=== PATIENT | female | born 1960 | race Caucasian/White ===

== ENCOUNTER 2021-03-30 06:09 | Day surgery (SDC) | payer MEDICARE ==
[~2021-03-30] VITALS: Ht 170.2 cm; Wt 77.3 kg
--- NOTE | ~2021-03-30 | OR ---
[facility] [address] [place], [place] [address] Draft DATE OF OPERATION: 03/30/2021 SURGEON: Meri Gavin DO PROCEDURE: Hysteroscopy D and C with endocervical biopsies. PREOPERATIVE DIAGNOSES: Endometrial thickening, endocervical canal thickening, cervical mass, pelvic pain, postmenopausal on hormone replacement therapy, history of PTSD. POSTOPERATIVE DIAGNOSES: Endometrial thickening, endocervical canal thickening, cervical mass, pelvic pain, postmenopausal on hormone replacement therapy, history of PTSD. ANESTHESIA: General. EBL: 15 mL. COMPLICATIONS: None. FINDINGS: Atrophic appearing endometrial lining. Both tubal ostia are visualized bilaterally. Normal-appearing endocervical canal without polyps or cervical mass visualized on hysteroscopy. Grade 2 cystocele and rectocele present without external abnormalities of the cervix visualized. Significant apical descensus present to the level of the hymenal ring. INDICATIONS: The patient is a 60-year-old female who presented to me initially for evaluation of pelvic pain and urinary and fecal incontinence. Ultrasound was ordered due to pelvic pain as well as significant tenderness to palpation on exam and she was referred to Urogynecology at [facility]. Ultrasound was significant for thickened endometrial lining of 8 mm in postmenopausal patient as well as endocervical thickening with a cervical mass present. Risks, benefits, and alternatives to hysteroscopy D and C with endocervical biopsy were discussed with the patient. Due to her history of PTSD, she strongly desired procedure be performed in the operating room rather than in the office setting. PATIENT NAME: ARABELLA LUJAN RECORD #: [id number] OPERATIVE REPORT DATE OF : 56 REPORT #: [id number] PHYSICIAN: MERI GAVIN DO PCP: LESLIE URIAS MD REPORT IS CONFIDENTIAL AND NOT TO BE RELEASED WITHOUT AUTHORIZATION [facility] [address] [place], [place] [address] Draft We discussed risks of bleeding, perforation, damage to surrounding structures, infection, and postoperative pain management challenges prior to procedure. Discussed standard of care for NSAID therapy for postoperative pain management and the patient elected to proceed. DESCRIPTION OF PROCEDURE: The patient was taken to the operating room where she was placed under anesthesia and positioned in dorsal lithotomy. She was prepped and draped in normal sterile fashion. Anterior lip of the cervix was grasped with an Allis clamp after weighted speculum was placed in the vagina and cervix was easily sequentially dilated with Hegar dilators to 6 mm to accommodate the scope. Hysteroscope was then introduced using the system for fluid management and sterile saline as a distending medium. The endometrium was surveyed with findings as noted above. Both tubal ostia were visualized. MyoSure Lite was brought in and endometrial curettings were performed without difficulty. Hysteroscope was then removed from the endometrium. Endocervical curettings were performed also with MyoSure Lite but submitted as a separate sample. All instrumentation was removed. Excellent hemostasis was noted. Fluid deficit was noted to be 750 mL and sponge and instrument counts were correct. The patient was taken to recovery in stable and satisfactory condition. Meri Gavin DO EMZ/MODL /[id number] Copies: ~ PATIENT NAME: ARABELLA LUJAN OPERATIVE REPORT DATE OF : 56 REPORT #: [id number] PHYSICIAN: MERI GAVIN DO PCP: LESLIE URIAS MD REPORT IS CONFIDENTIAL AND NOT TO BE RELEASED WITHOUT AUTHORIZATION
[~2021-03-30 06:09] MED LIST: DESVENLAFAXINE100 M3 PO; ESTRACE1 MG PO; KLONOPIN0.5 MG PO; PROGESTERONE100 MG PO; SUBOXONE 8 MG-1 EAC1 SL; TOPAMAX25 MG PO; TRAZODONE HCL100 MG PO
--- NOTE | 2021-03-31 15:37 | PATH ---
[facility] [address] [place], [place] [address] Signed SPECIMEN(S): A ENDOMETRIAL CURETTINGS SPECIMEN(S): B ENDOCERVICAL CURETTINGS SPECIMEN SOURCE: A. ENDOMETRIAL CURETTINGS B. ENDOCERVICAL CURETTINGS CLINICAL HISTORY: Thickened endometrium and cervical mass. Hysteroscopy DC with cervical biopsy. FINAL PATHOLOGIC DIAGNOSIS: A. Endometrium, curettage: - Weakly proliferative endometrium with foci of stromal breakdown and focus bordering on disordered proliferation. - Myometrium with no histopathologic abnormality. - Negative for hyperplasia or malignancy. B. Endocervix, curettage: - Fragments of endocervical mucosa with features of benign endocervical polyp(s). - Tunnel clusters. - Weakly proliferative endometrium; negative for hyperplasia. NAL:cml:C2NR MICROSCOPIC EXAMINATION: Histologic sections of all submitted blocks are examined by light microscopy. These findings, together with the gross examination, support the pathologic diagnosis. GROSS DESCRIPTION: Two specimens are received in two containers, labeled "LL." A. The specimen, labeled "LL, A," and designated on the requisition "EMC," is received in formalin and consists of multiple fragments of pink-ruby soft tissue (3.0 x 2.0 x 0.4 cm in aggregate). The specimen is submitted entirely in cassette (A1). B. The specimen, labeled "LL, B," and designated on the requisition "ECC," is received in formalin and consists of multiple fragments of pink-ruby soft tissue and mucoid material (2.5 x 1.4 x 0.2 cm in aggregate). The specimen is submitted entirely in cassette (B1). AC (under the direct supervision of a pathologist) The Gross Description was prepared using a voice recognition system. The report was reviewed for accuracy; however, sound-alike word errors, addition and/or PATIENT NAME: ARABELLA LUJAN PATHOLOGY DATE OF : 56 REPORT #: [id number] PHYSICIAN: SELENA LIVE PCP: LESLIE URIAS MD REPORT IS CONFIDENTIAL AND NOT TO BE RELEASED WITHOUT AUTHORIZATION [facility] [address] [place], [place] [address] Signed deletions may occur. If there is any question about this report, please contact Client Services. PERFORMING LABORATORY: The technical component was performed by [facility] [address] (Round Corner Cutter Operator: Jana De Anda MD; CLIA# [id number]). [facility] [address] [address] (CLIA# [id number]). Diagnostician: Samantha May MD Pathologist Electronically Signed 03/31/2021 Copies: ~ PATIENT NAME: ARABELLA LUJAN PATHOLOGY DATE OF : 56 REPORT #: [id number] PHYSICIAN: SELENA LIVE PCP: LESLIE URIAS MD REPORT IS CONFIDENTIAL AND NOT TO BE RELEASED WITHOUT AUTHORIZATION
== END 2021-03-30 09:20 | disposition home or self-care (01) ==
LOC: OPS 06:09 → DS 06:10 → OPS 06:45 → DS 06:45 → OPS 09:20
PROVIDERS: ATTEND Obstetrics & Gynecology
PROC: 0UDB8ZZ Extraction of Endometrium, Via Natural or Artificial Opening Endoscopic (ICD-10-PCS; 2021-03-30)
PROC: 0UBC8ZX Excision of Cervix, Via Natural or Artificial Opening Endoscopic, Diagnostic (ICD-10-PCS; principal; 2021-03-30 06:45)
DX: R93.89 Abnormal findings on diagnostic imaging of other specified body structures (principal); N88.8 Other specified noninflammatory disorders of cervix uteri; R10.2 Pelvic and perineal pain; N95.9 Unspecified menopausal and perimenopausal disorder; F43.10 Post-traumatic stress disorder, unspecified; J45.20 Mild intermittent asthma, uncomplicated; G43.909 Migraine, unspecified, not intractable, without status migrainosus; M79.7 Fibromyalgia; M17.11 Unilateral primary osteoarthritis, right knee; Z79.890 Hormone replacement therapy; Z98.1 Arthrodesis status; Z96.642 Presence of left artificial hip joint; Z88.8 Allergy status to other drugs, medicaments and biological substances; Z91.038 Other insect allergy status; Z88.1 Allergy status to other antibiotic agents; Z88.5 Allergy status to narcotic agent
CPT/HCPCS: 36415; 86850; 86900; 86901; J0131; J1644; J1885; J2001; J2704; J7121

== ENCOUNTER 2021-06-27 13:27 | Emergency (ER) | payer MEDICARE ==
[~2021-06-27] VITALS: Ht 170.2 cm; Wt 77.1 kg
--- OUTSIDE RECORDS SUMMARY | 2021-06-27 13:30 | XMS ---
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 [facility] TOTAL 3 NOTE: Visits indicate total known visits. ED/UCC VISIT TRACKING (12 MO.) 06/27/2021 13:28 [facility] [place] [place] TYPE: Emergency COMPLAINT: - L FLANK PAIN [facility]22[facility]2020 14[facility] Emergency DIAGNOSES: - Dizziness - Dizziness and giddiness - Weakness - Altered Mental Status 07/17/2020 00:43 [facility] Sahra [place] TYPE: Emergency DIAGNOSES: - Sprain of other ligament of left ankle, initial encounter - Ankle Injury - Ankle Pain INPATIENT VISIT TRACKING (12 MO.) No inpatient visits to display in this time frame [email or web address]
== END 2021-06-27 18:52 | disposition home or self-care (01) ==
LOC: ED 13:27
DX: K59.00 Constipation, unspecified (principal); Z88.8 Allergy status to other drugs, medicaments and biological substances; Z88.1 Allergy status to other antibiotic agents; Z79.899 Other long term (current) drug therapy
CPT/HCPCS: 74176; 81001; 96372; 99284-25; J1885

== ENCOUNTER 2022-03-30 12:23 | Emergency (ER) | payer MEDICARE, OTHER ==
[~2022-03-30] VITALS: Ht 170.2 cm; Wt 88.9 kg
--- OUTSIDE RECORDS SUMMARY | 2022-03-30 12:26 | XMS ---
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 - Has Care Guidelines CARE PROVIDERS LESLIE REBOLLEDO [facility] 06/28/2021-Current PHONE: Unknown SE [facility]ERT[place] OFFICE OF Case Management Current AGING \T\ CUSTODIAL CARE PHONE: [phone] Arely has no Care Guidelines for this patient. Care History Medical/Surgical 06/29/2021 [facility] Follow up with PCP Dr. Rebolledo on 06/29/2021 06/28/2021 [facility] - Patient is currently established with [facility]. If patient is seen in the ED during business hours. Please contact CHWs at [facility]. Care Recommendation: If this patient has had 5 or more Emergency Department visits in the last 12 months.\T\nbsp;Patient will require education on the scope and purpose of the ED as an acute care provider not a Primary Care Provider and should not be utilized for chronic conditions.\T\nbsp; These are guidelines and the provider should exercise clinical judgment when providing care. [place] V[facility] (12 MO.) [facility] TOTAL 3 NOTE: Visits indicate total known visits. ED/UCC VISIT TRACKING (12 MO.) 03/30/2022 12:24 [facility] [place] TYPE: Emergency COMPLAINT: - POSS STROKE OR RETINAL TEAR, NAUSEA, DIZZY 08/02/2021 09:31 [facility] [place] TYPE: Emergency DIAGNOSES: - Shortness of Breath - Solitary pulmonary nodule - Dizziness and giddiness - Decreased white blood cell count, unspecified - Shortness of breath 06/27/2021 13:28 [facility] TYPE: Emergency COMPLAINT: - L FLANK PAIN DIAGNOSES: - Low back pain, unspecified - Allergy status to other antibiotic agents - Allergy status to other drugs, medicaments and biological substances - Constipation, unspecified - Other keno terminal operator (current) drug therapy INPATIENT VISIT TRACKING (12 MO.) No inpatient visits to display in this time frame [email or web address]
[2022-03-30] MEDS ORDERED: MELOXICAM15 MG PO (13:57)
[2022-03-31] MEDS ORDERED: VITAMIN D325 MCG PO (12:55)
== END 2022-03-30 15:14 | disposition home or self-care (01) ==
LOC: ED 12:23
DX: H35.62 Retinal hemorrhage, left eye (principal); I50.9 Heart failure, unspecified; Z88.8 Allergy status to other drugs, medicaments and biological substances; Z88.1 Allergy status to other antibiotic agents; Z91.030 Bee allergy status; Z79.899 Other long term (current) drug therapy
CPT/HCPCS: 99283

== ENCOUNTER 2022-03-31 12:36 | Emergency (ER) | payer MEDICARE, OTHER ==
[~2022-03-31] VITALS: Ht 170.2 cm; Wt 88.5 kg
[~2022-03-31 12:36] MED LIST changes: +MELOXICAM15 MG PO
--- OUTSIDE RECORDS SUMMARY | 2022-03-31 12:38 | XMS ---
PreManage Notification: ARABELLA LUJAN Security Inside Tester Events No recent Security Events currently on file CRITERIA MET - PDMP - [facility] - 2 Visits in 30 Days - [facility] - Has Care Guidelines CARE PROVIDERS LESLIE REBOLLEDO [facility] 06/28/2021-Current PHONE: Unknown SE [place]ERT[place] OFFICE OF Case Management Current AGING \T\ ASH PIT WORKER CARE PHONE: [phone] Arely has no Care Guidelines for this patient. Care History Medical/Surgical 06/29/2021 [facility] [place] [facility] Follow up with PCP Dr. Rebolledo on 06/29/2021 06/28/2021 [facility] [place] [facility] - Patient is currently established with [facility]. If patient is seen in the ED during business hours. Please contact CHWs at [facility]. Care Recommendation: If this patient has had 5 or more Emergency Department visits in the last 12 months.\T\nbsp;Patient will require education on the scope and purpose of the ED as an acute care provider not a Primary Care Provider and should not be utilized for chronic conditions.\T\nbsp; These are guidelines and the provider should exercise clinical judgment when providing care. [place] [facility] ([facility] MO.) [facility] TOTAL 5 NOTE: Visits indicate total known visits. ED/UCC VISIT TRACKING (12 MO.) 03/31/2022 12:37 [facility] [place] TYPE: Emergency COMPLAINT: - LEFT EYE ISSUE 03/30/2022 18:22 [facility] [place] [facility]: Emergency DIAGNOSES: - Unspecified visual disturbance - Loss of Vision - possible retinal hemorrhage 03/30/2022 12:24 [facility] TYPE: Emergency COMPLAINT: - POSS STROKE OR RETINAL TEAR, NAUSEA, DIZZY 08/02/2021 09:31 [facility] Emergency DIAGNOSES: - Decreased white blood cell count, unspecified - Shortness of breath - Shortness of Breath - Solitary pulmonary nodule - Dizziness and giddiness 06/27/2021 13:28 [facility] [place] TYPE: Emergency COMPLAINT: - L FLANK PAIN DIAGNOSES: - Constipation, unspecified - Other vermin exterminator (current) drug therapy - Low back pain, unspecified - Allergy status to other antibiotic agents - Allergy status to other drugs, medicaments and biological substances INPATIENT VISIT TRACKING (12 MO.) No inpatient visits to display in this time frame [email or web address]
[2022-03-31] MEDS ORDERED: VITAMIN D325 MCG PO (12:55)
== END 2022-03-31 13:55 | disposition home or self-care (01) ==
LOC: ED 12:36
DX: H53.10 Unspecified subjective visual disturbances (principal); I50.9 Heart failure, unspecified; G43.909 Migraine, unspecified, not intractable, without status migrainosus; Z88.8 Allergy status to other drugs, medicaments and biological substances; Z91.030 Bee allergy status; Z79.899 Other long term (current) drug therapy
CPT/HCPCS: 99283

== ENCOUNTER 2022-04-25 12:18 | Emergency (ER) | payer MEDICARE, OTHER ==
[~2022-04-25] VITALS: Ht 170.2 cm; Wt 89.9 kg
[~2022-04-25 12:18] MED LIST changes: +VITAMIN D325 MCG PO
--- OUTSIDE RECORDS SUMMARY | 2022-04-25 12:20 | XMS ---
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 - Patient with suicidal and/or homicidal ideations eloped. - Patient eloped with IV in place. Details: LWBS CRITERIA MET - [facility] - 3 Facilities in 90 Days - [facility] - 2 Visits in 30 Days - [facility] - Has Care Guidelines - 6 ED Visits in 6 Months - [facility] CARE PROVIDERS LESLIE REBOLLEDO [facility] 06/28/2021-Current PHONE: [phone] SE HUERTA OFFICE OF Case Management Current AGING \T\ STEAM CONDITIONER OPERATOR CARE PHONE: [phone] Arely has no Care Guidelines for this patient. Care History Medical/Surgical 06/29/2021 [facility] Follow up with PCP Dr. Rebolledo on 06/29/2021 06/28/2021 [facility] - Patient is currently established with [facility]. If patient is seen in the ED during business hours. Please contact CHWs at [facility]. Care Recommendation: If this patient has had 5 or more Emergency Department visits in the last 12 months.\T\nbsp;Patient will require education on the scope and purpose of the ED as an acute care provider not a Primary Care Provider and should not be utilized for chronic conditions.\T\nbsp; These are guidelines and the provider should exercise clinical judgment when providing care. E.D. VISIT COUNT (12 MO.) 1 [facility] [address] [facility] 5 [facility] TOTAL 8 NOTE: Visits indicate total known visits. ED/UCC VISIT TRACKING (12 MO.) 04/25/2022 12:18 [facility] [place] TYPE: Emergency COMPLAINT: - SHORTNESS OF BREATH 04/12/2022 12:14 [facility] [place] TYPE: Emergency COMPLAINT: - LOWER BACK PAIN, BARELY ABLE TO WALK, INCONTINENCE 03/31/2022 19:10 [facility] TYPE: Emergency DIAGNOSES: [address]. VISION CHANGES 126[address]. Unspecified visual disturbance 03/31/2022 12:37 [facility] [place] TYPE: Emergency COMPLAINT: - LEFT EYE ISSUE DIAGNOSES: - Unspecified subjective visual disturbances - Unspecified visual disturbance - Allergy status to other drugs, medicaments and biological substances - Other filler leaf cutter long (current) drug therapy - Heart failure, unspecified - Migraine, unspecified, not intractable, without status migrainosus - Bee allergy status 03/30/2022 18:22 [facility] [place] TYPE: Emergency DIAGNOSES: - Loss of Vision - possible retinal hemorrhage - Unspecified visual disturbance 03/30/2022 12:24 [facility] [place] TYPE: Emergency COMPLAINT: - POSS STROKE OR RETINAL TEAR, NAUSEA, DIZZY DIAGNOSES: - Other halfway (current) drug therapy - Allergy status to other antibiotic agents - Retinal hemorrhage, left eye - Heart failure, unspecified - Allergy status to other drugs, medicaments and biological substances - Bee allergy status - Ocular pain, left eye 08/02/2021 09:[facility] [place] [facility]: Emergency DIAGNOSES: - Shortness of Breath - Solitary pulmonary nodule - Dizziness and giddiness - Decreased white blood cell count, unspecified - Shortness of breath 06/27/2021 13:28 [facility] [place] TYPE: Emergency COMPLAINT: - L FLANK PAIN DIAGNOSES: - Low back pain, unspecified - Allergy status to other antibiotic agents - Allergy status to other drugs, medicaments and biological substances - Constipation, unspecified - Other halfway (current) drug therapy INPATIENT VISIT TRACKING (12 MO.) No inpatient visits to display in this time frame [id number]
[2022-04-25] MEDS ORDERED: K-TAB ER20 MEQ PO (15:59)
[2022-04-25] MEDS ORDERED: LASIX20 MG PO (15:59)
--- NOTE | 2022-04-25 16:45 | EKG ---
[facility] [address] [facility] [place] [address] Signed Normal sinus rhythm Inferior infarct , age undetermined Abnormal ECG When compared with ECG of 21-MAR-2021 16:16, No significant change was found Confirmed by OBI HOWELL MD ([id number]) on 04/25/2022 4:45:37 PM Electronically Signed By: OBI HOWELL MD 04/25/22 1645 PATIENT NAME: ARABELLA LUJAN Electrocardiogram DATE OF : 56 PHYSICIAN: OBI HOWELL MD REPORT #: [id number] REPORT IS CONFIDENTIAL AND NOT TO BE RELEASED WITHOUT AUTHORIZATION
== END 2022-04-25 16:31 | disposition home or self-care (01) ==
LOC: ED 12:18
DX: R60.0 Localized edema (principal); I50.9 Heart failure, unspecified; M19.90 Unspecified osteoarthritis, unspecified site; G43.909 Migraine, unspecified, not intractable, without status migrainosus; Z88.8 Allergy status to other drugs, medicaments and biological substances; Z88.1 Allergy status to other antibiotic agents; Z91.030 Bee allergy status; Z79.899 Other long term (current) drug therapy
CPT/HCPCS: 36415; 71045; 80053; 81003; 83735; 83880; 84484; 85025; 87502; 93005; 93010; 99285-25; U0003

== ENCOUNTER 2022-07-04 12:10 | Emergency (ER) | payer MEDICARE, OTHER ==
[~2022-07-04] VITALS: Ht 170.2 cm; Wt 89.8 kg
[~2022-07-04 12:10] MED LIST changes: +K-TAB ER20 MEQ PO; +LASIX20 MG PO
--- OUTSIDE RECORDS SUMMARY | 2022-07-04 12:12 | XMS ---
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 - Patient with suicidal and/or homicidal ideations eloped. - Patient eloped with IV in place. Details: LWBS CRITERIA MET - 6 ED [facility] in [facility] Months [facility] - Has Care Guidelines CARE PROVIDERS LESLIE REBOLLEDO [facility] 06/28/2021-Current PHONE: [phone] SE HUERTA OFFICE OF Case Management Current AGING \T\ SNF CARE PHONE: [phone] Arely has no Care Guidelines for this patient. Care History Medical/Surgical 06/29/2021 [facility] Follow up with PCP Dr. Rebolledo on 06/29/2021 06/28/2021 [facility] - Patient is currently established with [facility]. If patient is seen in the ED during business hours. Please contact CHWs at [facility]. Care Recommendation: If this patient has [...] care. E.D. VISIT COUNT (12 MO.) 1 [facility] 2 [facility] 5 [facility] TOTAL 8 NOTE: Visits indicate total known visits. ED/UCC VISIT TRACKING (12 MO.) 07/04/2022 12:11 [facility] [place] TYPE: Emergency COMPLAINT: - DIZZINESS 04/25/2022 12:18 [facility] [place] TYPE: Emergency COMPLAINT: - SHORTNESS OF BREATH DIAGNOSES: - Allergy status to other antibiotic agents - Allergy status to other drugs, medicaments and biological substances - Bee allergy status - Contact with and (suspected) exposure to COVID-19 - Heart failure, unspecified - Localized edema - Migraine, unspecified, not intractable, without status migrainosus - Other long-term (current) drug therapy - Shortness of breath - Unspecified osteoarthritis, unspecified site 04/12/2022 12:14 [facility] [place] TYPE: Emergency COMPLAINT: - LOWER BACK PAIN, BARELY ABLE TO WALK, INCONTINENCE 03/31/2022 19:10 [facility] TYPE: Emergency DIAGNOSES: 31596. VISION CHANGES [address]. Unspecified visual disturbance 03/31/2022 12:37 [facility] TYPE: Emergency COMPLAINT: - LEFT EYE ISSUE DIAGNOSES: - Allergy status to other drugs, medicaments and biological substances - Bee allergy status - Heart failure, unspecified - Migraine, unspecified, not intractable, without status migrainosus - Other long-term (current) drug therapy - Unspecified subjective visual disturbances - Unspecified visual disturbance [facility]22 [facility] DIAGNOSES: - Unspecified visual disturbance - Loss of Vision - possible retinal hemorrhage 03/30/2022 12:24 [facility] TYPE: Emergency COMPLAINT: - POSS STROKE OR RETINAL TEAR, NAUSEA, DIZZY DIAGNOSES: - Allergy status to other antibiotic agents - Allergy status to other drugs, medicaments and biological substances - Bee allergy status - Heart failure, unspecified - Ocular pain, left eye - Other long-term (current) drug therapy - Retinal hemorrhage, left eye [facility]02[facility]21 [facility] DIAGNOSES: - Decreased white blood cell count, unspecified - Dizziness and giddiness - Shortness of breath - Solitary pulmonary nodule - Shortness of Breath INPATIENT VISIT TRACKING (12 MO.) No inpatient visits to display in this time frame [email or web address]
[2022-07-04 14:43] VITALS: BP 147/72
--- NOTE | 2022-07-04 19:10 | EKG ---
[facility] [address] [place], [place] [address] Signed Normal sinus rhythm Normal ECG When compared with ECG of 25-APR-2022 12:32, No significant change was found Confirmed by LISA FOFANA MD ([id number]) on 07/04/2022 7:10:01 PM Electronically Signed By: LISA FOFANA MD 07/04/221909 PATIENT NAME: ARABELLA LUJAN Electrocardiogram DATE OF : 56 PHYSICIAN: LISA FOFANA MD REPORT #: [id number] REPORT IS CONFIDENTIAL AND NOT TO BE RELEASED WITHOUT AUTHORIZATION
== END 2022-07-04 14:40 | disposition home or self-care (01) ==
LOC: ED 12:10
DX: F41.1 Generalized anxiety disorder (principal); I50.9 Heart failure, unspecified; M19.90 Unspecified osteoarthritis, unspecified site; G43.909 Migraine, unspecified, not intractable, without status migrainosus; Z88.8 Allergy status to other drugs, medicaments and biological substances; Z88.1 Allergy status to other antibiotic agents; Z91.030 Bee allergy status; Z79.899 Other long term (current) drug therapy
CPT/HCPCS: 36415; 80053; 84484; 85025; 85379; 93005; 93010; 93971; 99284-25

== ENCOUNTER 2023-02-27 06:47 | Day surgery (SDC) | payer MEDICARE, OTHER ==
[2023-02-11 15:18] VITALS: BP 133/75
[~2023-02-27] VITALS: Ht 170.2 cm; Wt 88.6 kg
[~2023-02-27 06:47] MED LIST changes: +BUPRENORP-NALO1 EAC1 SL; +LACTATED RINGER'S 1,000 ML IV SCH; +METFORMIN HCL500 MG PO; +NARCAN4 MG NAS; +VENTOLIN HFA18 GM INH; +ZIPRASIDONE HCL20 MG PO
[2023-02-27 07:00] VITALS: BP 137/72
[2023-02-27] MEDS ORDERED: IBLOOD GLUCOSE TEST STRIP 1 EA TEST VI PRN ×2 (07:00→10:45)
[2023-02-27] MEDS ORDERED: FAMOTIDINE 20 MG/ 2 ML VIAL IV SCH (07:00)
[2023-02-27] MEDS ORDERED: LIDOCAINE HCL 1% 5 ML SDV INJ ONE (07:00)
[2023-02-27] MEDS ORDERED: propofoL 200 MG/20 ML VIAL ONE ×3 (09:16→09:53)
[2023-02-27] MEDS ORDERED: KETAMINE in NS 50 MG/5 ML SYR ONE (09:16)
[2023-02-27] MEDS ORDERED: MIDAZOLAM HCL 2 MG/2 ML VIAL ONE ×2 (09:16→10:12)
[2023-02-27] MEDS ORDERED: LIDOCAINE HCL 2% 5 ML SDV ONE (09:16)
[2023-02-27] MEDS ORDERED: dexmedeTOMIDine HCl 200 MCG/2 ML VIAL ONE (09:31)
[2023-02-27] MEDS ORDERED: ACETAMINOPHEN 1,000 MG/100 ML VIAL ONE (09:37)
[2023-02-27] MEDS ORDERED: ePHEDrine sulfate 50 MG/ML AMP ONE (09:39)
[2023-02-27] MEDS ORDERED: SODIUM CHLORIDE 0.9% 20 ML IV ONE (09:40)
[2023-02-27] MEDS ORDERED: KETOROLAC TROMETHAMINE 30 MG/ML VIAL ONE (10:03)
[2023-02-27] MEDS ORDERED: ondansetron HCL 4 MG/2 ML VIAL ONE (10:03)
[2023-02-27] MEDS ORDERED: ondansetron HCL 4 MG/2 ML VIAL IV PRN ×2 (10:15→10:45)
[2023-02-27] MEDS ORDERED: LACTATED RINGER'S 1,000 ML IV SCH (10:15)
[2023-02-27] MEDS ORDERED: IBUPROFEN 800 MG TAB PO PRN (10:15)
[2023-02-27] MEDS ORDERED: FAMOTIDINE 20 MG TAB PO PRN (10:15)
[2023-02-27] MEDS ORDERED: MAGNESIUM HYDROXIDE/AL HYDROX 30 ML CUP PO PRN (10:15)
[2023-02-27] MEDS ORDERED: ondansetron HCL 4 MG TAB PO PRN (10:15)
[2023-02-27] MEDS ORDERED: NALOXONE HCL 0.4 MG SYR IV PRN (10:45)
[2023-02-27] MEDS ORDERED: AZITHROMYCIN250 MG PO (11:29)
[2023-02-27 12:16] LABS: BILIRUBIN, URINE NEGATIVE (negative); BLOOD/HGB, URINE LARGE (Negative); KETONE, URINE NEGATIVE (Negative); LEUK ESTERASE, URINE NEGATIVE (negative); NITRITE, URINE NEGATIVE (negative)
[2023-02-27 12:30] LABS: RED BLOOD CELLS, URINE 41-50 /hpf (0-5)
[2023-02-27 12:32] LABS: EPITHELIAL CELLS, URINE SQUAMOUS 1+ /lpf (0-1+); REFLEX CULTURE, URINE No (No)
[2023-02-27 15:00] VITALS: BP 117/68
--- NOTE | 2023-03-01 11:26 | PATH ---
[facility] [address] [place], [place] [address] Signed SPECIMEN(S): A EXOCERVIX SPECIMEN(S): B ENDOCERVIX SPECIMEN(S): C ENDOCERVICAL CURETTINGS SPECIMEN(S): D ENDOMETRIAL BIOPSY SPECIMEN SOURCE: A. EXOCERVIX B. ENDOCERVIX C. ENDOCERVICAL CURETTINGS D. ENDOMETRIAL BIOPSY CLINICAL HISTORY: HPV. FINAL PATHOLOGIC DIAGNOSIS: A. Ectocervix: - Low-grade squamous intraepithelial lesion (mild squamous dysplasia, GERALD 1) at an inked margin. - Squamous metaplasia. B. Endocervix: - Benign cervical stroma, negative for epithelium or pathologic inflammation. C. Endocervical curettings: - Benign endocervical epithelium, negative for definite dysplasia. - Mucoinflammatory debris. D. Endometrial biopsy: - Benign endocervical and rare atrophic endometrial glandular epithelium, negative for hyperplasia or atypia. - Mucoinflammatory debris. - See Comment. COMMENT: The recent cervical cytology ([id number], reactive, high-risk HPV positive) is noted. The endometrial sampling is scant and may not be access service representative of the endometrium. Clinical correlation is requested and if concern persists additional sampling may be considered. JVR:smn MICROSCOPIC EXAMINATION: Histologic sections of all submitted blocks are examined by light microscopy. These findings, together with the gross examination, support the pathologic PATIENT NAME: ARABELLA LUJAN PATHOLOGY DATE OF : 56 REPORT #: [id number] PHYSICIAN: SELENA LIVE PCP: LESLIE URIAS MD REPORT IS CONFIDENTIAL AND NOT TO BE RELEASED WITHOUT AUTHORIZATION [facility] [address] [place], [place] [address] Signed diagnosis. A p16 immunostain is performed with appropriate controls on block A1 and is negative for full thickness epithelial staining and shows patchy expression in the area of concern, supporting the diagnosis. JVR:smn GROSS DESCRIPTION: A. The specimen, labeled and designated "Marlene, exocervix," is received in formalin and consists of cervical tissue that measure 1.1 x 1.0 x 0.5 cm. The ectocervix is pink-ruby, smooth. Resection margin is inked and specimen is sectioned. Entirely submitted in (A1). B. The specimen, labeled and designated "Marlene, endocervix," is received in formalin and consists of irregular shaped pink-ruby tissue fragment that measure 0.8 x 0.7 x 0.6 cm. Specimen is inked and sectioned. Entirely submitted in (B1). C. The specimen, labeled and designated "Marlene, endocervical curettings," is received in formalin and consists of 1.7 x 0.6 x 0.2 cm aggregate of adhikari mucoid material. The specimen is filtered into a mesh bag and entirely in (C1). D. The specimen, labeled and designated "Marlene, endometrial biopsy," is received in formalin and consists of irregular shaped membranous and hemorrhagic tissue fragments that aggregate measure 1.7 x 0.7 x 0.1 cm. Entirely submitted in (D1). JS (under the direct supervision of a pathologist) The Gross Description was prepared using a voice recognition system. The report was reviewed for accuracy; however, sound-alike word errors, addition and/or deletions may occur. If there is any question about this report, please contact Client Services. ADDITIONAL NOTES: Immunohistochemical and/or in situ hybridization studies were performed on this case with the appropriate positive controls that react as expected. This test was developed and its performance characteristics determined by [facility]. It has not been cleared or approved by the U.S. Food and Drug Administration. The FDA has determined that such clearance or approval is not necessary. This test is used for clinical purposes. It should not be regarded as investigational or for research. [facility] is certified under the Clinical Laboratory Improvement Amendments of 1988 (CLIA) as qualified to perform high complexity clinical PATIENT NAME: ARABELLA LUJAN PATHOLOGY DATE OF : 56 REPORT #: [id number] PHYSICIAN: SELENA LIVE PCP: LESLIE URIAS MD REPORT IS CONFIDENTIAL AND NOT TO BE RELEASED WITHOUT AUTHORIZATION [facility] [address] [place] [id number] Signed laboratory testing. This assay has not been validated for specimens that have been decalcified. PERFORMING LABORATORY: Technical component was performed by [facility], [address] [place] [id number] (CLIA# [id number]). Professional interpretation was performed by [facility], [address] [place] [id number] (CLIA#: [id number]). Diagnostician: Freddy Coles MD Pathologist Electronically Signed 03/01/2023 Copies: ~ PATIENT NAME: ARABELLA LUJAN PATHOLOGY DATE OF : 56 REPORT #: [id number] PHYSICIAN: SELENA LIVE PCP: LESLIE URIAS MD REPORT IS CONFIDENTIAL AND NOT TO BE RELEASED WITHOUT AUTHORIZATION
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
== END 2023-02-27 12:04 | disposition home or self-care (01) ==
LOC: OPS 06:47 → DS 06:47 → OPS 07:30 → DS 09:15 → OPS 09:15
PROVIDERS: ATTEND Obstetrics & Gynecology
PROC: 0UBC7ZZ Excision of Cervix, Via Natural or Artificial Opening (ICD-10-PCS; principal; 2023-02-27 10:00)
DX: R87.612 Low grade squamous intraepithelial lesion on cytologic smear of cervix (LGSIL) (principal); R87.810 Cervical high risk human papillomavirus (HPV) DNA test positive; F32.A Depression, unspecified; J45.20 Mild intermittent asthma, uncomplicated; K21.9 Gastro-esophageal reflux disease without esophagitis; G43.909 Migraine, unspecified, not intractable, without status migrainosus; E28.2 Polycystic ovarian syndrome; Z79.899 Other long term (current) drug therapy; Z88.8 Allergy status to other drugs, medicaments and biological substances; F43.10 Post-traumatic stress disorder, unspecified
CPT/HCPCS: 00940; 81001; 87088; 88305; 88342; J0131; J1885; J2001; J2250; J2405; J2704; J3490; J7121

== ENCOUNTER 2023-04-06 17:39 | Emergency (ER) | payer MEDICARE, OTHER ==
[~2023-04-06] VITALS: Ht 170.2 cm; Wt 91.1 kg
[~2023-04-06 17:39] MED LIST changes: +AZITHROMYCIN250 MG PO; -LACTATED RINGER'S 1,000 ML IV SCH
[2023-04-06 18:01] LABS: BASOPHILS 0.9 % (0-2); EOSINOPHILS 4.5 % (0-6); HEMATOCRIT 37.8 % (35.0-50.0); HEMOGLOBIN 12.8 g/dL (12.0-18.0); LYMPHOCYTES 41.2 % (24-44); MCH 30.4 (27-36); MCHC 33.8 g/dl (30-36); MCV 89.9 fl (81-99); MONOCYTES 6.7 % (0-12); NEUTROPHILS 46.7 % (39-80); PLATELET COUNT 193 K/uL (140-440); RBC 4.21 M/ul (4.3-5.7); RDW 13.4 (10.5-15.0)
[2023-04-06 18:13] LABS: ALBUMIN 3.6 g/dL (3.4-5.0); ALBUMIN/GLOBULIN RATIO 1.2 (1.1-2.4); ANION GAP 14.2 (7-21); BILIRUBIN, TOTAL 0.3 ng/dL (0.2-1.0); BUN/CREATININE RATIO 20.23 (6.0-28.6); CALCIUM 8.9 mg/dL (8.5-10.1); CREATININE, SERUM 0.84 mg/dL (0.55-1.02); MAGNESIUM 2.1 mg/dL (1.8-2.4); POTASSIUM 4.2 mmol/L (3.5-5.1); PROTEIN, TOTAL 6.6 g/dL (6.4-8.2)
[2023-04-06] MEDS ORDERED: ondansetron HCL 4 MG/2 ML VIAL IV ONE (19:00)
--- NOTE | 2023-04-08 11:58 | EKG ---
[facility] [address] [facility] [place] [address] Signed Normal sinus rhythm Normal ECG When compared with ECG of 04-JUL-2022 12:22, No significant change was found Confirmed by Nola Corona MD ([id number]) on 04/08/2023 11:58:25 AM Electronically Signed By: NOLA CORONA 04/08/23 1158 PATIENT NAME: ARABELLA LUJAN Electrocardiogram DATE OF : 56 PHYSICIAN: NOLA CORONA REPORT #: [id number] REPORT IS CONFIDENTIAL AND NOT TO BE RELEASED WITHOUT AUTHORIZATION
== END 2023-04-06 20:15 | disposition home or self-care (01) ==
LOC: ED 17:39
PROVIDERS: Emergency Medicine
DX: R07.9 Chest pain, unspecified (principal); I50.9 Heart failure, unspecified; Z88.8 Allergy status to other drugs, medicaments and biological substances; Z91.030 Bee allergy status; Z79.899 Other long term (current) drug therapy; Z79.84 Long term (current) use of oral hypoglycemic drugs
CPT/HCPCS: 36415; 71045; 80053; 83735; 84484; 85025; 93005; 93010; J2405

== ENCOUNTER 2024-11-19 14:03 | Emergency (ER) | payer MEDICARE, OTHER ==
[~2024-11-19] VITALS: Ht 170.2 cm; Wt 98.5 kg
[~2024-11-19 14:03] MED LIST changes: +CLONIDINE HCL0.1 MG PO; +METHOCARBAMOL750 MG PO; +METHYLPREDNISOLO4 M1 PO
[2024-11-19 14:36] LABS: BASOPHILS 0.6 % (0.1-1.2); EOSINOPHILS 3.1 % (0.7-5.8); LYMPHOCYTES 34.4 % (19.3-51.7); MCH 30.8 PG (25.6-32.2); MCHC 34.1 g/dL (32.2-35.5); MCV 90.3 fL (79.4-94.8); MONOCYTES 6.4 % (4.7-12.5); NEUTROPHILS 55.1 % (34.0-71.1); RBC 4.55 M/uL (3.93-5.22)
[2024-11-19 15:14] LABS: CORONAVIRUS COVID-19 AG NEGATIVE (NEGATIVE)
[2024-11-19 15:24] LABS: ALT (SGPT) 19 U/L (14-59); AST (SGOT) 11 U/L (15-37); GLOMERULAR FILTRATION RATE,EST 93 mL/min (>60); PROTEIN, TOTAL 6.5 g/dL (6.4-8.2); UREA NITROGEN 17 mg/dL (7-18)
[2024-11-19] MEDS ORDERED: SODIUM CHLORIDE 0.9% 1,000 ML IV PRN (15:45)
[2024-11-19 18:15] VITALS: BP 138/68
--- NOTE | 2024-11-22 10:40 | EKG ---
[facility] [address] [facility] [place] [address] Signed Normal sinus rhythm Low voltage QRS Borderline ECG When compared with ECG of 06-APR-2023 17:41, No significant change was found Confirmed by Chun Noland DO ([id number]) on 11/22/2024 10:40:33 AM Electronically Signed By: CHUN NOLAND DO 11/22/24 1040 PATIENT NAME: ARABELLA LUJAN Electrocardiogram DATE OF : 56 PHYSICIAN: CHUN NOLAND DO REPORT #: [id number] REPORT IS CONFIDENTIAL AND NOT TO BE RELEASED WITHOUT AUTHORIZATION
== END 2024-11-19 18:10 | disposition home or self-care (01) ==
LOC: ED 14:03
PROVIDERS: Emergency Medicine
DX: R55 Syncope and collapse (principal); I50.9 Heart failure, unspecified; J45.909 Unspecified asthma, uncomplicated; Z88.8 Allergy status to other drugs, medicaments and biological substances; Z88.1 Allergy status to other antibiotic agents; Z91.038 Other insect allergy status; Z79.1 Long term (current) use of non-steroidal anti-inflammatories (NSAID); Z79.899 Other long term (current) drug therapy
CPT/HCPCS: 36415; 70450; 70496; 70498; 71045; 80053; 83880; 84484; 85025; 93005; 93010; 99285-25; J7030; Q9967

== ENCOUNTER 2025-01-27 05:47 | Day surgery (SDC) | payer MEDICARE, OTHER ==
[~2025-01-27] VITALS: Ht 167.6 cm; Wt 93.0 kg
[~2025-01-27 05:47] MED LIST changes: +BUPRENORPHINE HC2 MG SL; +ESTRACE42.5 GM VAGINAL; +FAMOTIDINE20 MG PO; +GEMTESA75 MG PO; +LACTATED RINGER'S 1,000 ML IV SCH; +LOSARTAN POTASS25 MG PO
[2025-01-27 06:07] VITALS: BP 134/65
[2025-01-27] MEDS ORDERED: SUMATRIPTAN5 MG NAS (06:17)
[2025-01-27] MEDS ORDERED: FLONASE ALLERG9.9 ML NAS (06:17)
[2025-01-27 06:20] LABS: BASOPHILS 0.7 % (0.1-1.2); EOSINOPHILS 3.3 % (0.7-5.8); LYMPHOCYTES 43.1 % (19.3-51.7); MCH 29.9 PG (25.6-32.2); MCHC 33.7 g/dL (32.2-35.5); MCV 88.9 fL (79.4-94.8); MONOCYTES 7.4 % (4.7-12.5); NEUTROPHILS 45.3 % (34.0-71.1); RBC 4.58 M/uL (3.93-5.22)
[2025-01-27] MEDS ORDERED: LIDOCAINE HCL 1% 5 ML SDV INJ ONE (07:00)
[2025-01-27] MEDS ORDERED: CEFAZOLIN SODIUM 2 GM in SODIUM CHLORIDE 0.9% 100 ML IV SCH (07:00)
[2025-01-27] MEDS ORDERED: IBLOOD GLUCOSE TEST STRIP 1 EA TEST VI PRN ×2 (07:00→08:30)
[2025-01-27] MEDS ORDERED: ACETAMINOPHEN 1,000 MG/100 ML VIAL ONE (07:30)
[2025-01-27] MEDS ORDERED: fentaNYL citrate 100 MCG/2 ML VIAL ONE (07:30)
[2025-01-27] MEDS ORDERED: SUGAMMADEX SODIUM 200 MG/2 ML ML ONE (07:30)
[2025-01-27] MEDS ORDERED: LIDOCAINE HCL 2% 5 ML SDV ONE (07:30)
[2025-01-27] MEDS ORDERED: ROCURONIUM BROMIDE 50 MG/5 ML SYR ONE (07:30)
[2025-01-27] MEDS ORDERED: KETOROLAC TROMETHAMINE 30 MG/ML VIAL ONE (07:33)
[2025-01-27] MEDS ORDERED: DEXAMETHASONE SOD PHOS 4 MG/ML VIAL ONE ×3 (07:33→07:49)
[2025-01-27] MEDS ORDERED: Ropivacaine HCl 0.5% 30 ML VIAL ONE (07:49)
[2025-01-27] MEDS ORDERED: SODIUM CHLORIDE 0.9% 20 ML IV ONE (07:49)
[2025-01-27] MEDS ORDERED: HYDROCODONE/ACETA 7.5/325 TAB PO PRN (08:30)
[2025-01-27] MEDS ORDERED: NALOXONE HCL 0.4 MG SYR IV PRN (08:30)
[2025-01-27] MEDS ORDERED: fentaNYL citrate 50 MCG/ML SDV IV PRN (08:30)
[2025-01-27] MEDS ORDERED: PROCHLORPERAZINE EDISYLATE 10 MG/2 ML VIAL IV PRN (08:30)
[2025-01-27] MEDS ORDERED: MIDAZOLAM HCL 2 MG/2 ML VIAL IV PRN (08:30)
[2025-01-27] MEDS ORDERED: HYDROmorphone HCL 1 MG/ML SYR IV PRN (08:30)
--- NOTE | 2025-01-27 08:40 | NUR ---
01/27/25 0840 Flores Argueta 0881-PATIENT ARRIVED TO PACU ON 6L MASK RR EVEN NONAROUSABLE ORAL AIRWAY IN PLACE. DRESSING INTACT WITH ABDOMINAL BINDER. SR HR 60-70'S. IVF INFUSING.
[2025-01-27 09:22] VITALS: BP 105/56
--- NOTE | 2025-01-27 09:28 | NUR ---
0920 PT ARRIVED TO DAY SURGERY FROM PACU VIA STREACHER. PT BREATHING EQUAL AND UNLABORED. PT RESTING IN BED WITH SPIRITUAL CARE IN ROOM WITH THERAPY DOG IN ROOM ON BED WITH PT. PT OXYGEN CHANGING BETWEN 89-96% ON RA. PT SITTING UP IN BED, WITH EYES CLOSED. PT PRACTICING DEEP BREATHING AND LISTENING TO CALMING MUSIC. PT HAS CALL LIGHT WITHIN REACH, PT HAS PERSONAL ITEMS WITHIN REACH. PT REPORTS NO PAIN OR NAUSEA AT THIS TIME. PT RESTING WITH EYES CLOSED, WATER AND PUDDING AT BEDSIDE. 0935 PT PLACED ON 1L OF OXYGEN VIA NASAL CANULLA DUE TO OXYGEN DIPPING DOWN TO 87% ON RA.
[2025-01-27 10:08] VITALS: BP 109/56
--- NOTE | 2025-01-27 10:20 | NUR ---
1010 HOURLY ROUNDING DONE WITH PT. PT REPORTS TOLERABLE 4/10 PAIN BUT PT WOULD LIKE PAIN MEDICATION BEFORE PAIN GOES UP. PT WAKES TO VERBAL STIMULI. VITALS TAKEN. PT REMOVED FROM OXYGEN, PT OXYGEN STEADY AT 94% ON RA. PT RESTING WITH EYES CLOSED. PT ABLE TO TOLERATE PO FLUID AND PUDDING. 1014 pain medication given per emar. pt has call light within reach, and personal items within reach.
--- NOTE | 2025-01-27 10:56 | NUR ---
1055 PT REPORTING PAIN TO BE A 6 OR 7 OUT OF 10 NOW. PAIN MEDICATION GIVEN AT 1014. CALLED DR MORENO ABOUT PT PAIN. DR MORENO GIVES VERBAL ORDER TO GIVE ANOTHER NARCO 7.5/[address] PAIN[address] MCLEAN OF MEDICATION BEING GIVEN AT 1014.
[2025-01-27] MEDS ORDERED: HYDROCODONE/ACETA 7.5/325 TAB PO ONE (11:00)
[2025-01-27 11:01] VITALS: BP 101/57
--- NOTE | 2025-01-27 11:13 | NUR ---
1109 PAIN MEDICATION GIVEN PER EMAR. PT HAS FRIEND IN ROOM. PT REPORTS 7/10 PAIN AT THIS TIME. PT HAS CALL LIGHT AND WILL USE TO ALERT RN IF PT PAIN GOES UP INSTEAD OF DOWN AND IF PT FEELS THE NEED TO URINATE.
[2025-01-27 12:01] VITALS: BP 97/48
--- NOTE | 2025-01-27 12:31 | NUR ---
1200 HOURLY ROUNDING DONE WITH PT. VITALS TAKEN. IV ASSESSED. PT REPORTS NO NAUSEA AT THIS TIME. PT REPORTS TOLABLE 4/10 PAIN. PT REPORTS URGE TO URINATE. 1205 PT AMBULATES TO BATHROOM WITH MINIMAL ASSISTANCE. PT AMBULATES TO BATHROOM WITH EVEN STEADY GAIT. PT ABLE TO URINATE 400 MLS OF CLEAR YELLOW URINE. PT ABLE TO AMBULATE BACK TO ROOM. PT BACK IN BED WITH CALL LIGHT WITHIN REACH. 1210 PT DRESSED WITH ASSISTANCE. PT RIDE CALLED, PT RIDE STATES SHE WILL BE BACK IN 20ISH MINUTES. 1220 DISCHARGE PAPERWORK DONE WITH PT. NO QUESTIONS AT THIS TIME. AWAITING PT'S RIDE, PT IN BED WITH CALL LIGHT WITHIN REACH. NO QUESTIONS AT THIS TIME.
--- NOTE | 2025-01-27 12:54 | NUR ---
1240 PT RIDE ARRIVES TO DEPARTMENT. DISCUSSED ABDOMINAL BINDER WITH PT AND PT SUPPORT PERSON. DEMONSTRATED WITH PT AND SUPPORT PERSON. PT AND SUPPORT PERSON ABLE TO APPLY ABDOMINAL BINDER TOGETHER WITHOUT ASSISTANCE. DISCUSSED LEAVING ABDOMINAL BINDER IN PLACE CONTINUOUSLY. IV DISCONTINUED FOR DISCHARGE. 1247 PT DISCHARGED FROM DAY SURGERY VIA WHEELCHAIR TO THE FRONT OF THE HOSPITAL, TO PT'S SUPPORT PERSON'S CAR. PT HAS DISCHARGE INFORMATION IN HAND. PT HAS PERSONAL ITEMS IN HAND AND PT SUPPORT PERSON HAS ALREADY RUN PRESCRIPTION TO PHARMACY. NO QUESTIONS AT THIS TIME.
[2025-01-27] MEDS ORDERED: SEVOFLURANE 250 ML BTL INH ONE (13:30)
[2025-01-28] MEDS ORDERED: HYDROCODON-ACE1 EA11 PO (08:50)
[2025-01-28] MEDS ORDERED: CEPHALEXIN500 MG PO (08:50)
[2025-01-28] MEDS ORDERED: CEFAZOLIN SODIUM 2 GM in SODIUM CHLORIDE 0.9% 100 ML IV ONE (11:30)
[2025-01-28] MEDS ORDERED: DEXTROSE 5% - LACTATED RINGERS 1,000 ML IV SCH (12:45)
[2025-01-28] MEDS ORDERED: ACETAMINOPHEN 650 MG SUPP PR PRN (12:45)
[2025-01-28] MEDS ORDERED: HYDROmorphone HCL 1 MG/ML SYR IV PRN (12:45)
[2025-01-28] MEDS ORDERED: FAMOTIDINE 20 MG/ 2 ML VIAL IV SCH (12:48)
[2025-01-28] MEDS ORDERED: PIPERACILLIN/TAZOBACTAM 4.5 GM in SODIUM CHLORIDE 0.9% 100 ML IV SCH (14:00)
--- NOTE | 2025-01-28 15:29 | OR ---
[facility] [address] [place], [place] [address] Signed DATE OF OPERATION: 01/27/2025 SURGEON: Radha Szymanski DO PREOPERATIVE DIAGNOSIS: Incarcerated umbilical hernia. POSTOPERATIVE DIAGNOSIS: Incarcerated umbilical hernia. PROCEDURE PERFORMED: Repair of incarcerated umbilical hernia. ANESTHESIA: General. ESTIMATED BLOOD LOSS: Minimal. DRAINS: None. COMPLICATIONS: None. DESCRIPTION OF PROCEDURE: The patient was brought to the operative room, placed in the supine position. After induction of general endotracheal anesthesia, the abdomen was then sterilely prepped and draped in usual fashion. Utilizing a curvilinear subumbilical incision, skin was incised with a scalpel. Dissection continued down through the layers of subcutaneous tissue. Bleeding points were controlled with electrocautery. The umbilicus was then elevated from the fascia. The fascial defect was identified. Culture contents were identified. The culture contents were mobilized utilizing Bovie cautery, passed off the field. The fascial margins were freshened. The fascial defect was then closed in a [id number] fashion with #1 Ethibond. This was completed apex to apex and was satisfied and the closure of the fascial defect was noted. The region was then copiously irrigated and dried. The umbilicus was then tacked back down to the anterior fascia with interrupted 2-0 Vicryl. Subcutaneous tissue was closed with 3-0 Vicryl and the skin was closed with 4-0 Monocryl in a subcuticular fashion. Dermabond dressing was applied. The patient Electronically Signed By: RADHA SZYMANSKI DO 01/27/25 0939 Electronically Signed By: RADHA SZYMANSKI DO 01/29/25 0829 PATIENT NAME: ARABELLA LUJAN OPERATIVE REPORT DATE OF : 56 REPORT #: [id number] PHYSICIAN: RADHA SZYMANSKI DO PCP: KAI MOELLER MD REPORT IS CONFIDENTIAL AND NOT TO BE RELEASED WITHOUT AUTHORIZATION [facility] [address] [facility] [place], [place] [address] Signed tolerated the procedure well and taken to recovery room in satisfactory condition. DO GIBSON Klein/ADRYAN /[id number] Copies: ~ Electronically Signed By: RADHA SZYMANSKI DO 01/27/25 0939 Electronically Signed By: RADHA SZYMANSKI DO 01/29/25 0829 PATIENT NAME: ARABELLA LUJAN OPERATIVE REPORT DATE OF : 56 REPORT #: [id number] PHYSICIAN: RADHA SZYMANSKI DO PCP: KAI MOELLER MD REPORT IS CONFIDENTIAL AND NOT TO BE RELEASED WITHOUT AUTHORIZATION
[2025-01-28] MEDS ORDERED: ZIPRASIDONE HCL20 MG PO (15:53)
[2025-01-28] MEDS ORDERED: FLUTICASONE PRO16 GM NAS (15:55)
[2025-01-28] MEDS ORDERED: LOSARTAN POTASS50 MG PO (15:56)
== END 2025-01-27 12:47 | disposition home or self-care (01) ==
LOC: DS 05:47 → OPS 05:47 → DS 07:30 → OPS 07:30
PROVIDERS: Nurse Anesthetist, Certified Registered; ATTEND Surgery
PROC: 3E0T3BZ Introduction of Anesthetic Agent into Peripheral Nerves and Plexi, Percutaneous Approach (ICD-10-PCS; 2025-01-27)
PROC: 0WQF0ZZ Repair Abdominal Wall, Open Approach (ICD-10-PCS; principal; 2025-01-27 07:30)
DX: K42.0 Umbilical hernia with obstruction, without gangrene (principal); J45.20 Mild intermittent asthma, uncomplicated; E28.2 Polycystic ovarian syndrome; G43.909 Migraine, unspecified, not intractable, without status migrainosus; K21.9 Gastro-esophageal reflux disease without esophagitis; M79.7 Fibromyalgia; M17.11 Unilateral primary osteoarthritis, right knee; Z79.1 Long term (current) use of non-steroidal anti-inflammatories (NSAID); Z79.84 Long term (current) use of oral hypoglycemic drugs; Z79.899 Other long term (current) drug therapy; Z88.1 Allergy status to other antibiotic agents; Z88.8 Allergy status to other drugs, medicaments and biological substances; Z91.038 Other insect allergy status; Z96.642 Presence of left artificial hip joint; Z98.1 Arthrodesis status
CPT/HCPCS: 00750; 36415; 76942; 85025; A9270; J0131; J0688; J1100; J1885; J2003; J2405; J2704; J2795; J3010; J3490; J7121